=== PATIENT | male | born 1985 | race Caucasian/White ===

== ENCOUNTER 2017-09-07 18:19 | Emergency (ER) | payer OTHER, SELFPAY ==
--- NOTE | 2017-09-07 18:19 | DT_ITS ---
This patient was seen during an EMR downtime August 31, 2017 - September 07, 2017. This patient may have a combination of paper and electronic documentation or all paper documentation. All documentation is viewable within the e-chart portion of [facility] for each patient visit.
[2017-09-07 18:20] VITALS: BP 157/95; PULSE 84; RESP 18; TEMP 37.1; O2SAT 95; BMI 26.4
--- NOTE | 2017-09-07 18:31 | CT_ITS ---
STUDY: CT ABDOMEN AND PELVIS WITHOUT CONTRAST REASON FOR EXAM: Male, 31 years old. Right lower quadrant pain RADIATION DOSAGE (If Supplied By Facility): CTDIvol = ( 7.08 ) mGy, DLP = ( 385.84 ) mGycm TECHNIQUE: Transaxial images were obtained from the dome of the diaphragm to the symphysis pubis without oral contrast, and without intravenous contrast. Sagittal and coronal images were reconstructed. Individualized dose optimization techniques were used for this CT. COMPARISON: None. FINDINGS: Evaluation of the abdominal viscera is limited in the absence of intravenous contrast. The visualized lung bases are clear. The visualized portions of the heart and pericardium are within normal limits. There are no calcified gallstones present. The liver demonstrates an unremarkable unenhanced appearance. The spleen is normal in size. The pancreas demonstrates an unremarkable unenhanced appearance. The adrenal glands are within normal limits. There are no renal or ureteral stones. There is no hydronephrosis. Normal visualized stomach. There is no bowel obstruction or inflammation. There is a large amount of stool in the colon, consistent with constipation. The appendix is visualized and appears normal. The aorta is normal in caliber. There is no abdominal or pelvic free air, free fluid, fluid collection or lymphadenopathy. There are no destructive osseous lesions. CT/Abdomen/Pelvis without Cont IMPRESSION: No acute abdominal or pelvic pathology demonstrated on this noncontrast CT. Constipation. Electronically Signed: Harvey Teixeira, at 19:22 EDT Tel , Service support ,
[2017-09-07] MEDS: 0.9% Normal Saline 1,000 ML 150 ML IV (18:50)
[2017-09-07] MEDS: Ondansetron 4 MG/2 ML Vial IV (18:51)
[2017-09-07] MEDS: Ketorolac 30 MG/ML Syringe IV (18:51)
[2017-09-07 18:55] LABS: Bacteria 0 SEEN /hpf (None Seen); Mucous, Urine 0 SEEN /hpf (<or=2+); Red Blood Cells-Urine 0 SEEN /hpf (0-5); Squamous Epithelial Cells - UA 0 SEEN /hpf (0-5); White Blood Cells 0 SEEN /hpf (0-5)
[2017-09-07 18:57] LABS: Absolute Lymphocyte Count 2.59 X10^3/ul (0.83-4.51); Absolute Neutrophil Count 5.4 X10^3/uL (2.0-7.7); Basophil# 0.02 X10^3/uL; Basophil% 0.2 % (0-1); Eosinophil# 0.04 X10^3/uL; Eosinophils% 0.5 % (0-5); Hemoglobin 14.6 g/dl (13.0-16.5); Lymphocyte # 2.59 X10^3/ul (4.0); Lymphocyte % 29.7 % (19-41); Mean Corpuscular Hgb 29.5 pg (27.0-32.0); Mean Corpuscular Volume 86.9 fL (80-94); Monocyte# 0.63 X10^3/uL; Monocyte% 7.2 % (0-10); Neutrophil # 5.43 X10^3/uL (2.7-7.7); Neutrophil % 62.2 % (47-70); Platelet Count 215 K/mm3 (150-450); RBC Distribution Width CV 12.1 % (11.6-14.6); RBC Distribution Width SD 38.3 fl (35.1-43.9); Red Blood Count 4.95 M/mm3 (4.6-6.2); White Blood Count 8.7 K/mm3 (4.4-11.0)
[2017-09-07 18:59] LABS: POSITIVE COUNT NO; POSITIVE DIFFERENTIAL NO; POSITIVE MORPHOLOGY NO
[2017-09-07 19:06] LABS: Color, Urine YELLOW (Yellow)
[2017-09-07 19:07] LABS: Glucose, Dipstick Normal (Normal); Ketone-Dipstick Negative (Negative); Leukocyte Esterase-Dipstick Negative /ul (Negative); Nitrite-Dipstick Negative (Negative); Occult Blood-Urine Negative /ul (Negative); Protein-Dipstick Negative (Negative); Urine Bilirubin Dipstick Negative (Negative); Urine Clarity Clear (Clear); Urine Urobilinogen Normal (Normal)
[2017-09-07 19:13] LABS: Anion Gap 5 (5-15); BUN 14 mg/dL (7-18); BUN/Creat Ratio 14.4 RATIO (10-20); Calcium,Total 9.2 mg/dL (8.5-10.1); Chloride 109 mmol/L (98-107); Creatinine, Serum 0.97 mg/dL (0.70-1.30); EST Glomerular Filtration Rate 96 mL/min (>60); Est Glom Filt Rate - Afr Amer 116 mL/min (>60); Glucose 89 mg/dL (74-106); Sodium Level 141 mmol/L (136-145)
--- NOTE | 2017-09-07 19:49 | ED.VISSUMM ---
- ER Visit Summary Date of Service: 09/07/17 Chief Complaint: Right lower quadrant abdominal pain History of Present Illness: The patient is a 31 M reports a one-day history of right lower quadrant abdominal pain. He has had some nausea but no vomiting. He states he has chronic diarrhea that is unchanged from baseline. He did have some urinary frequency today but denies dysuria or discoloration. Physical Examination: Vital signs are significant for blood pressure 157/95, otherwise unremarkable. Patient sitting upright in bed no acute distress. Head neck examination is normal. Heart is regular rate and rhythm. No lung sounds are clear. Abdomen is soft with tenderness along the inferior acid of the right lower quadrant. No masses are noted. He has active bowel sounds throughout. Test Results: CBC and chemistry studies are significant for potassium of 3.0. Urinalysis is normal. CT flank shows no evidence of acute pathology. Constipation is noted. Emergency Department Course and Treatment: Patient was given Toradol, Zofran, and IV fluids. Upon return of blood work he received 40 mEq of potassium chloride orally. Test results were discussed with the patient at bedside. We will give him potassium replacement for the next apple of days and write him for some MiraLAX. He is already following with a GI doctor in the [place] area. He is to follow-up with him within the next week. Treatment Plan: [] Disposition: Discharge Impression: 1. Constipation 2. Hypokalemia This note was generated with en[employer] dictation software. It may contain incorrect words, spelling, and punctuation that were not noted in review of the chart prior to signing ED Disposition - Plan for ED Patient: Chief Complaint: Abd Pain Referrals: David Davies MD [Primary Care Provider] -
--- NOTE | 2017-09-07 19:50 | ED.DEP ---
ED Disposition - Plan for ED Patient: Disposition: Home or Assisted Living Chief Complaint: Abd Pain Instructions: ED Abdominal Pain Unkn Cause, ED Constipation Prescriptions: Polyethylene Glycol 3350 [Miralax] 17 gm PO DAILY #30 packet Potassium Chloride [K-Dur] 20 meq PO BID #10 tablet Referrals: David Davies MD [Primary Care Provider] - 1 Week
[2017-09-07 20:03] VITALS: BP 157/81; PULSE 72; RESP 18; O2SAT 98
== END 2017-09-07 20:04 | disposition home or self-care (01) ==
PROVIDERS: Emergency Provider Emergency Medicine; Family Provider Family Medicine; PCP Family Medicine
DX: K59.00 Constipation, unspecified (principal); E87.6 Hypokalemia
CPT/HCPCS: 74176; 80048; 81001; 85025; 96361; 96374; 96375; 99285; J7030; A4216; J2405

== ENCOUNTER 2018-04-23 11:59 | Emergency (ER) | payer OTHER, SELFPAY ==
[2018-04-23 12:01] VITALS: BP 126/69; PULSE 73; RESP 18; TEMP 36.4; O2SAT 99; BMI 24.5
--- NOTE | 2018-04-23 12:29 | ED.VISSUMM ---
- ER Visit Summary Date of Service: 04/23/18 Chief Complaint: Transient right lower quadrant abdominal pain resolved History of Present Illness: The patient is a 32 M no loosening past medical or surgical history. Patient's had no prior abdominal surgeries. He states 4 months 6 months or longer he has had right lower quadrant abdominal pain that normally comes on 30 minutes to several hours after eating. Then it resolves. No significant nausea or vomiting. No fever. No melena. He has had about a 30 pound weight loss in the last 6 months or so but said he was trying to get in better shape and has changed his eating habits. He has had this pain worked up. He states he had a negative CAT scan done in 2018. He had a negative small bowel follow-through. He had a negative colonoscopy. He has seen and been evaluated by Dr. Corinne Alejo of the [facility]. They do not have a specific cause for his pain. He denies noting any hernias. Physical Examination: Well-appearing young male. No acute distress. Vital signs are stable. He is afebrile. HEENT exam unremarkable. Neck nontender no lymphadenopathy. Lungs clear to auscultation bilaterally. Heart regular rhythm no murmur rate about 70. Abdomen soft. Nondistended. Normal bowel sounds. No signs of obstruction. No hernias or masses. External inguinal canals bilaterally is unremarkable. External exam is nontender. No masses or hydroceles. His right lower quadrant currently is nontender. His entire abdomen is benign and nontender. Moving all 4 extremities. Neurovascular intact. Back nontender. Neurologic exam normal. Test Results: None. Patient is already had significant workup all of which was reportedly negative including a CT of his abdomen and pelvis, colonoscopy and small bowel follow-through. I explained to him that is not any specific test that I would do today that would be of any specific benefit to him. Currently symptom-free. His abdomen is benign. Emergency Department Course and Treatment: Follow-up with his primary care physician and/or Dr. Corinne Alejo. Treatment Plan: Follow-up Disposition: Discharge Impression: Acute transient abdominal pain of uncertain etiology resolved This note was generated with [employer] dictation software. It may contain incorrect words, spelling, and punctuation that were not noted in review of the chart prior to signing ED Disposition - Plan for ED Patient: Chief Complaint: Abd Pain Referrals: David Davies MD [Primary Care Provider] -
--- NOTE | 2018-04-23 12:32 | ED.DCSUM_ITS ---
- ER Visit Summary Date of Service: 04/23/18 Chief Complaint: Transient right lower quadrant abdominal pain resolved History of Present Illness: The patient is a 32 M no loosening past medical or surgical history. Patient's had no prior abdominal surgeries. He states 4 months 6 months or longer he has had right lower quadrant abdominal pain that normally comes on 30 minutes to several hours after eating. Then it resolves. No significant nausea or vomiting. No fever. No melena. He has had about a 30 pound weight loss in the last 6 months or so but said he was trying to get in better shape and has changed his eating habits. He has had this pain worked up. He states he had a negative CAT scan done in 2018. He had a negative small bowel follow-through. He had a negative colonoscopy. He has seen and been evaluated by Dr. Corinne Alejo of the [facility]. They do not have a specific cause for his pain. He denies noting any hernias. Physical Examination: Well-appearing young male. No acute distress. Vital signs are stable. He is afebrile. HEENT exam unremarkable. Neck nontender no lymphadenopathy. Lungs clear to auscultation bilaterally. Heart regular rhythm no murmur rate about 70. Abdomen soft. Nondistended. Normal bowel sounds. No signs of obstruction. No hernias or masses. External inguinal canals bilaterally is unremarkable. External exam is nontender. No masses or hydroceles. His right lower quadrant currently is nontender. His entire abdomen is benign and nontender. Moving all 4 extremities. Neurovascular intact. Back nontender. Neurologic exam normal. Test Results: None. Patient is already had significant workup all of which was reportedly negative including a CT of his abdomen and pelvis, colonoscopy and small bowel follow-through. I explained to him that is not any specific test t hat I would do today that would be of any specific benefit to him. Currently symptom-free. His abdomen is benign. Emergency Department Course and Treatment: Follow-up with his primary care physician and/or Dr. Corinne Alejo. Treatment Plan: Follow-up Disposition: Discharge Impression: Acute transient abdominal pain of uncertain etiology resolved This note was generated with [employer] dictation software. It may contain incorrect words, spelling, and punctuation that were not noted in review of the chart prior to signing ED Disposition - Plan for ED Patient: Chief Complaint: Abd Pain Referrals: David Davies MD [Primary Care Provider] -
--- NOTE | 2018-04-23 12:32 | ED.DEP ---
ED Disposition - Plan for ED Patient: Disposition: Home or Assisted Living Chief Complaint: Abd Pain Instructions: ED Abdominal Pain Unkn Cause Referrals: David Davies MD [Primary Care Provider] - As soon as possible Additional Instructions: Follow-up with your doctors. There is no test in the ER that would be of any added benefit today.
[2018-04-23 12:46] VITALS: RESP 16
== END 2018-04-23 12:50 | disposition home or self-care (01) ==
PROVIDERS: Emergency Provider Emergency Medicine; Family Provider Family Medicine; PCP Family Medicine
DX: R10.31 Right lower quadrant pain (principal)
CPT/HCPCS: 99282

== ENCOUNTER 2018-08-09 17:52 | Emergency (ER) | payer OTHER, SELFPAY ==
[2018-08-09 17:53] VITALS: BP 147/86; PULSE 115; RESP 18; TEMP 36.3; O2SAT 94; BMI 23.1
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
[2018-08-09 19:59] VITALS: BP 143/98; PULSE 83; O2SAT 95
== END 2018-08-09 19:59 | disposition home or self-care (01) ==
PROVIDERS: Emergency Provider Emergency Medicine; Family Provider Family Medicine; PCP Family Medicine
DX: S16.1XXA Strain of muscle, fascia and tendon at neck level, initial encounter (principal); F41.9 Anxiety disorder, unspecified; M62.838 Other muscle spasm; V43.53XA Car driver injured in collision with pick-up truck in traffic accident, initial encounter; Y93.9 Activity, unspecified; Y92.410 Unspecified street and highway as the place of occurrence of the external cause; Y99.9 Unspecified external cause status
CPT/HCPCS: 70450; 72125; 99284; J7030; A4216

== ENCOUNTER 2023-04-23 13:29 | Emergency (ER) | payer OTHER, BC, SELFPAY ==
[2023-04-23 13:30] VITALS: BP 125/96; PULSE 72; RESP 18; TEMP 36.7; O2SAT 100
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
--- NOTE | 2023-04-23 14:37 | EDS_ITS ---
HPI History of Present Illness Chief Complaint: Lower Extremity Injury Informant: patient Narrative Narrative: Patient presents from work secondary to left leg injury. He was spending a large steel piece when it fell off the hook and hit the front of the patient's browne and rolled down onto his foot. He was wearing steel toed boots at the time of injury. He denies previous problems with his leg or ankle. He has had difficulty with weightbearing since this injury. PFSH PFSH Medical History no medical history no medical history Home Medications cyclobenzaprine 5 mg tablet 5 mg PO TID PRN Muscle Spasm #20 tabs 08/09/18 [Rx Last Taken Unknown] naproxen 500 mg tablet 500 mg PO BID PRN #20 tabs 08/09/18 [Rx Last Taken Unknown] naproxen 500 mg tablet (Naprosyn) 500 mg PO BID PRN pain #20 tabs 04/23/23 [Rx Last Taken Unknown] Allergy/AdvReac Type Severity Reaction Status Date / Time No Known Allergies Allergy Verified 04/23/23 13:30 Social History Smoking Status: Never smoker ROS ROS ED Constitutional Constitutional ED: Denies chills or fever(s) Eyes Eyes: Denies discharge from eye(s) ENT ENT ED: Denies discharge from eye(s), rhinorrhea or sore throat Cardiovascular Cardiovascular: Denies chest pain or palpitations Respiratory/Chest Respiratory/Chest: Denies cough or dyspnea Gastrointestinal Gastrointestinal: Denies abdominal pain, nausea or vomiting Musculoskeletal Musculoskeletal: Reports extremity pain; Denies back pain Integumentary Reports Abrasions; Denies rash Neurologic Neurologic: Denies headache(s) or weakness Endocrine Endocrinology: Denies polydipsia or polyuria Allergic/Immunologic Allergic/Immunologic ED: Denies lip swelling or urticaria EXAM Physical Exam Const Vital Signs: 04/23/23 13:30 Temperature 98.1 F Temperature Source Temporal Pulse Rate 72 Respiratory Rate 18 Blood Pressure 125/96 H Blood Pressure Mean 105 Pulse Ox 100 Positive well nourished and well developed General Appearance ED: well developed HEENT Reports moist mucous membranes Eyes PERRL Neck full ROM Chest Wall inspection of chest normal and palpation of chest normal Resp normal respiratory effort and clear to auscultation bilaterally Cardio regular rate and regular rhythm GI non-tender Palpation: soft Extremity Extremity Narrative: Patient has linear erythematous ross of the lower anterior browne. Mild tenderness noted. Boot is removed. Patient has minimal tenderness over the foot itself but does have diffuse tenderness around the ankle. No obvious deformity. Good distal pulses and can wiggle toes. No tenderness of the proximal fibula or knee. Neuro oriented x3 and no sensory deficits noted MDM MDM MDM Narrative Medical decision making narrative: X-rays of the left tib-fib and left foot obtained to evaluate for potential fracture. Differential diagnosis also includes contusion, sprain, strain. Radiography Diagnostic Testing: Clinical Impression(s) from Imaging Studies Foot X-Ray 04/23/23 14:40 IMPRESSION: Normal x-ray examination of the foot. Electronically Signed: Favian Graham MD at 15:16 EST , Treatment and Re-Evaluation Narrative: Left tib-fib and left foot x-rays are reviewed by myself. No evidence of acute fracture. Test results discussed with patient. Sudhir wrap applied to the lower extremity and patient be treated with naproxen, first dose given here. Nursing staff will ambulate the patient and he will be given crutches if needed. He will follow-up with [facility]. Discharge Plan Triage Chief Complaint: Lower Extremity Injury ED Provider: Jenise Jacobo Dx/Rx/DC Orders Clinical Impression: Contusion of left leg Instructions: ED Contusion, Lower Extremity Prescriptions: New naproxen [Naprosyn] 500 mg tablet 500 mg PO BID PRN (Reason: pain) Qty: 20 0RF No Action cyclobenzaprine 5 MG tablet 5 mg PO TID PRN (Reason: Muscle Spasm) Qty: 20 0RF naproxen 500 MG tablet 500 mg PO BID PRN Qty: 20 0RF Stand Alone Forms: Work Status Form Primary Care Provider: Care Physician,No Primary Referrals: [facility] [Group of Physicians] - 3-5 Days David Davies MD [Non-Staff] - Disposition Disposition: Home, Self Care
--- NOTE | 2023-04-23 14:40 | RAD_ITS ---
STUDY: X-RAY - LEFT FOOT CLINICAL: Male, 37 years old. Injury TECHNIQUE: 3 view(s) of the foot. COMPARISON: None. FINDINGS: Normal talus, calcaneus, and tarsal bones. Normal visualized subtalar, talonavicular, calcaneocuboid, tarsal and tarsometatarsal articulations. Normal metatarsi. Normal metatarsophalangeal joint of the great toe. Normal tibial and fibular sesamoid bones. Normal interphalangeal joint of the great toe. Normal phalanges of the great toe. Normal second through fifth metatarsophalangeal joints. Normal interphalangeal joints and phalanges of the lesser toes. The soft tissue structures are unremarkable. RAD/Foot min 3 Views IMPRESSION: Normal x-ray examination of the foot. Electronically Signed: Favian Graham MD at 15:16 EST ,
--- OUTSIDE RECORDS SUMMARY | 2023-04-23 15:31 | XMS RPT_ITS | CCD ---
Author Name Unknown Address [address] [place] [address] Organization [facility] Care Team Providers Care Machine Presser Name Role Phone ANA FLETCHER ([employer] G[employer]) Unavailable Unavailable Allergies Allergy Classification Reported Allergen(s) Allergy Type Date of Onset Reaction(s) Facility (1 source) naproxen; Translations: [NAPROXEN] Drug Allergy 02-11-2008 [facility] Other [place] [facility] Problems Problem Classification Problem Date Documented Da te Episodic/Chronic Other gastrointestinal disorders (2 sources) Change in bowel habit; Translations: [Diarrhea, unspecified] Onset: 09-02-2017 Episodic Results Test Name Value Interpretation Reference Range Facil ity Encounters Encounter Date Encounter Type Care Provider Facility Start: 09-02-2017 Ambulatory ANA (ARCENIO) [facility] Summary Purpose Family History No Family History Records FoundNo Family History Records Found Advance Directives No Advanced Directives Records FoundNo Advanced Directives Records Found Additional Source Comments (unrecognized sect ion and content) No Status Records FoundNo Status Records Found INFORMATION SOURCE (unrecogn ized section and content) DATE CREATED AUTHOR AUTHOR'S ORGANIZ ATION 09/14/2019 [facility] FOR RECORDS PERTAINING TO PATIENTS WHO ARE OR HAVE BEEN ENROLLED IN A CHEMICAL DEPENDENCY/SUBSTANCEABUSE PROGRAM, SOME INFORMATION MAY BE OMITTED. This clinical summary was aggregated from multiple sources. Caution should be exercised in using it in the provision of clinical care. This summary normalizes information from multiple sources, and as a consequence, information in this document may materially change the coding, format and clinical context of patient data. In addition, data may be omitted in some cases. CLINICAL DECISIONS SHOULD BE BASED ON THE PRIMARY CLINICAL RECORDS. [facility]. provides no warranty or guarantee of the accuracy or completeness of information in this document.
[2023-04-23] MEDS: Naproxen 500 MG Tablet PO (15:37)
== END 2023-04-23 15:40 | disposition home or self-care (01) ==
PROVIDERS: Emergency Provider Emergency Medicine; Visit Provider Emergency Medicine
DX: S80.12XA Contusion of left lower leg, initial encounter (principal); W19.XXXA Unspecified fall, initial encounter
CPT/HCPCS: 73590; 73630; 99282